=== PATIENT | male | born 1960 | race Caucasian/White ===

== ENCOUNTER → 2020-10-11 | Outpatient (CLI) | payer OTHER ==
--- NOTE | 2020-10-11 09:36 | US ---
EXAMINATION TYPE: US thyroid st tissue head/neck DATE OF EXAM: 10/11/2020 COMPARISON: NONE CLINICAL HISTORY: E03.9 hypothyroidism R13.10 Dysphagia. hypothyroidism, on meds for years, patient h as lost his voice GLAND SIZE: Right Lobe: 3.9 x 1.0 x 1.3 cm Overall Parenchyma: heterogenous Left Lobe: 4.4 x 1.2 x 1.9 cm Overall Parenchyma: heterogeneous Isthmus Thickness: unable to discern NODULES RIGHT: # of nodules measured on right: 0 LEFT: # of nodules measured on left: 0 ISTHMUS: # of nodules measured in the isthmus: 0 Bilateral neck scanned, no evidence of lymphadenopathy. IMPRESSION: No solid nodule seen within the heterogeneous thyroid. 2017 ACR TI-RADS LEVEL: TR-RADS 1 - BENIGN: No FNA *Highest TI-RADS level nodule reported
== END | disposition home or self-care (01) ==
LOC: RADUSWWP 07:49
PROVIDERS: ATTEND Family Medicine
DX: E03.9 Hypothyroidism, unspecified (principal); R13.10 Dysphagia, unspecified
CPT/HCPCS: 76536

== ENCOUNTER → 2021-07-26 | Outpatient (CLI) | payer OTHER ==
--- NOTE | 2021-07-26 17:33 | XR ---
EXAMINATION TYPE: XR chest 2V DATE OF EXAM: 07/26/2021 COMPARISON: None available HISTORY: SOB and dyspnea probably TECHNIQUE: Frontal and lateral views of the chest are obtained. FINDINGS: Grossly unremarkable lungs. No pleural effusion or pneumothorax. No cardiomegaly. No gross aggressive bone lesion. IMPRESSION: No significant pulmonary abnormality identified.
== END | disposition home or self-care (01) ==
LOC: RADXRYALE 10:01
PROVIDERS: ATTEND Physician Assistant Medical
DX: R06.02 Shortness of breath (principal)
CPT/HCPCS: 71046

== ENCOUNTER → 2021-09-20 | Outpatient (CLI) | payer OTHER ==
--- NOTE | 2021-09-20 15:54 | CT ---
EXAMINATION TYPE: CT angio chest DATE OF EXAM: 09/20/2021 3:36 PM COMPARISON: 07/27/2021 HISTORY: h/o recent PE CT DLP: 861.8 mGycm Automated exposure control for dose reduction was used. CONTRAST: CTA scan of the thorax is performed with IV Contrast, patient injected with 65 mL of Isovue 370, pulm onary embolism protocol. 3-D postprocessing was performed.. FINDINGS: The lungs are clear of consolidative, interstitial or masslike density. There is no pleural effusion, pleural thickening or pneumothorax. There is no mediastinal, hilar or axillary adenopathy. The large pulmonary embolism seen on the prior study has nearly completely resolved in the interval. There are a few tiny string-like filling defects within the distal right pulmonary artery and right l ower lobe subsegmental branch consistent with tiny residual pulmonary emboli. There are no definite l eft lung pulmonary emboli. The right heart strain seen on the prior study has resolved in the interv al.. Limited scanning through the upper and reveals a large gallstone but no other significant abnormality . The osseous structures are intact. IMPRESSION: 1. Near complete resolution of the large pulmonary embolism with minimal tiny string-like emboli in t he distal right pulmonary artery and lower lobe segmental branch. 2. Resolution of the right heart strain seen on the prior study. 3. No acute cardiopulmonary disease. 4. Large gallstone.
== END | disposition home or self-care (01) ==
LOC: RADCTMAIN 14:54
PROVIDERS: ATTEND Internal Medicine Critical Care Medicine
DX: I26.99 Other pulmonary embolism without acute cor pulmonale (principal)
CPT/HCPCS: 71275; Q9967

== ENCOUNTER → 2023-05-18 | Outpatient (CLI) | payer OTHER ==
--- NOTE | 2023-05-18 15:48 | XR ---
EXAMINATION TYPE: XR abdomen 2V DATE OF EXAM: 05/18/2023 COMPARISON: None INDICATION: Urinary calculus TECHNIQUE: Abdomen is examined in supine and upright views. FINDINGS: No free air is evident. Nonspecific bowel gas is present. No suspicious air-fluid levels or different ial air-fluid levels are evident. Psoas margins are normal. No organomegaly is present. Large calcifications in the right upper quadrant likely is a gallstone measuring 3.1 cm. IMPRESSION: 1. Large gallstone likely present right upper quadrant. 2. Nonspecific bowel gas pattern
== END | disposition home or self-care (01) ==
LOC: RADXRYALE 13:44
PROVIDERS: ATTEND Physician Assistant
DX: K80.20 Calculus of gallbladder without cholecystitis without obstruction (principal); R14.0 Abdominal distension (gaseous); M54.59 Other low back pain; Z87.442 Personal history of urinary calculi
CPT/HCPCS: 74019

== ENCOUNTER → 2023-06-02 | Outpatient (CLI) | payer OTHER ==
[2023-06-02 15:44] LABS: ALT 11 U/L (10-49); AST 17 U/L (14-35); Chol/HDL Ratio 3.57 Ratio; LDL Cholesterol,Calculated 90.2 mg/dL (0.0-131.0)
== END | disposition home or self-care (01) ==
LOC: LABWHC1 09:46
PROVIDERS: ATTEND Internal Medicine Cardiovascular Disease
DX: E78.2 Mixed hyperlipidemia (principal)
CPT/HCPCS: 36415; 80061; 84450; 84460

== ENCOUNTER 2024-01-11 07:43 | Emergency (ER) | payer OTHER ==
[2024-01-11 07:49] VITALS: RESP 18
--- NOTE | 2024-01-11 08:05 | ED ---
Male Urogenital HPI - General Chief complaint: Urogenital Stated complaint: Blood in urine Time Seen by Provider: 01/11/24 07:54 Source: patient, RN notes reviewed Mode of arrival: ambulatory Limitations: no limitations - History of Present Illness Initial comments: 63-year-old presents emergency department with chief complaint of blood in urine. Patient states started with some lower abdominal discomfort. Patient states he has a history of kidney stones but this feels different. Patient states that he is on Xarelto for history of PE. Patient states that he is having bright red blood when he urinated and along with clots. Denies fevers or chills no flank pain no chest pain or shortness of breath - Related Data Home Medications Medication Instructions Recorded Confirmed Aspirin EC [Ecotrin Low Dose] 81 mg PO DAILY 07/27/21 07/27/21 Atorvastatin [Lipitor] 20 mg PO DAILY 07/27/21 07/27/21 Levothyroxine Sodium 150 mcg PO DAILY 07/27/21 07/27/21 Losartan Potassium 100 mg PO DAILY 07/27/21 07/27/21 Sertraline [Zoloft] 100 mg PO DAILY 07/27/21 07/27/21 Previous Rx's Medication Instructions Recorded Omeprazole [PriLOSEC] 20 mg PO AC-BID #60 cap 07/29/21 Rivaroxaban [Xarelto Starter Pack] 0 mg PO DIRECTED 30 Days #1 07/29/21 packet Phenazopyridine [Pyridium] 200 mg PO TID #6 tablet 01/11/24 Sulfamethox-Tmp 800-160Mg [Bactrim 1 each PO Q12HR #20 tab 01/11/24 Ds] Allergies Allergy/AdvReac Type Severity Reaction Status Date / Time No Known Allergies Allergy Verified 01/11/24 07:49 Review of Systems ROS Statement: Those systems with pertinent positive or pertinent negative responses have been documented in the HPI. ROS Other: All systems not noted in ROS Statement are negative. Past Medical History Past Medical History: Hyperlipidemia, Hypertension, Pulmonary Embolus (PE), Thyroid Disorder Additional Past Medical History / Comment(s): Hypothyroid, PE (2011), CPAP for REYMUNDO History of Any Multi-Drug Resistant Organisms: None Reported Past Surgical History: Orthopedic Surgery Additional Past Surgical History / Comment(s): Left rotator cuff 05/21/2021 Past Anesthesia/Blood Transfusion Reactions: No Reported Reaction Past Psychological History: Anxiety, Depression Smoking Status: Never smoker Past Alcohol Use History: Occasional, Rare Past Drug Use History: None Reported - Past Family History Father Family Medical History: CVA/TIA General Exam Limitations: no limitations General appearance: alert, in no apparent distress Head exam: Present: atraumatic, normocephalic, normal inspection Eye exam: Present: normal appearance, PERRL, EOMI. Absent: scleral icterus, conjunctival injection, periorbital swelling Neck exam: Present: normal inspection, full ROM. Absent: tenderness, meningismus, lymphadenopathy Respiratory exam: Present: normal lung sounds bilaterally. Absent: respiratory distress, wheezes, rales, rhonchi, stridor Cardiovascular Exam: Present: regular rate, normal rhythm, normal heart sounds. Absent: systolic murmur, diastolic murmur, rubs, gallop, clicks GI/Abdominal exam: Present: soft, tenderness, normal bowel sounds. Absent: distended, guarding, rebound, rigid Back exam: Absent: CVA tenderness (R), CVA tenderness (L) Course Vital Signs 01/11/24 01/11/24 07:44 10:45 Temperature 98 F 98.1 F Pulse Rate 84 71 Respiratory 18 18 Rate Blood Pressure 179/79 128/73 O2 Sat by Pulse 98 98 Oximetry Medical Decision Making - Medical Decision Making Was pt. sent in by a medical professional or institution (Dr. PA, PRESS MAINTAINER, urgent care, hospital, or prison...) When possible be specific @ -No Did you speak to anyone other than the patient for history (EMS, parent, family, police, friend...)? What history was obtained from this source @ -No Did you review nursing and triage notes (agree or disagree)? Why? @ -I reviewed and agree with nursing and triage notes Were old charts reviewed (outside hosp., previous admission, EMS record, old EKG, old radiological studies, urgent care reports/EKG's, prison records)? Report findings @ -No old charts were reviewed Differential Diagnosis (chest pain, altered mental status, abdominal pain women, abdominal pain men, vaginal bleeding, weakness, fever, dyspnea, syncope, headache, dizziness, GI bleed, back pain, seizure, CVA, palpatations, mental health, musculoskeletal)? @ -Differential Abdominal Pain Men: Appendicitis, cholecystitis, diverticulosis, ischemic bowel, pancreatitis, hepatitis, UTI, gastroenteritis, AAA, incarcerated hernia, bowel obstruction, constipation, inflammatory bowel, hepatitis, peptic ulcer disease, splenic infarction, perforated viscus, testicular torsion, this is not meant to be an all-inclusive list EKG interpreted by me (3pts min.). @ -None X-rays interpreted by me (1pt min.). @ -None done CT interpreted by me (1pt min.). @ -CT abdomen pelvis showing enhancing area around bladder concerning for cystitis, no other acute process noted U/S interpreted by me (1pt. min.). @ -None done What testing was considered but not performed or refused? (CT, X-rays, U/S, labs)? Why? @ -None What meds were considered but not given or refused? Why? @ -None Did you discuss the management of the patient with other professionals (professionals i.e. , PA, PRESS MAINTAINER, lab, RT, psych nurse, social media marketing manager, long chain quiller tender, teacher, forward air controller/air officer, shoe parts caser)? Give summary @ -No Was smoking cessation discussed for >3mins.? @ -No Was critical care preformed (if so, how long)? @ -No Were there social determinants of health that impacted care today? How? (Homelessness, low income, unemployed, alcoholism, drug addiction, transportation, low edu. Level, literacy, decrease access to med. care, half-way, rehab)? @ -No Was there de-escalation of care discussed even if they declined (Discuss DNR or withdrawal of care, Hospice)? DNR status @ -No What co-morbidities impacted this encounter? (DM, HTN, Smoking, COPD, CAD, Cancer, CVA, ARF, Chemo, Hep., AIDS, mental health diagnosis, sleep apnea, morbid obesity)? @ -None Was patient admitted / discharged? Hospital course, mention meds given and route, prescriptions, significant lab abnormalities, going to OR and other pertinent info. @ -Discharged patient is found to have UTI, hemorrhagic cystitis. Patient given Rocephin discharged on oral antibiotics with close follow-up hemoglobin is stable. Undiagnosed new problem with uncertain prognosis? @ -No Drug Therapy requiring intensive monitoring for toxicity (Heparin, Nitro, Insulin, Cardizem)? @ -No Were any procedures done? @ -No Diagnosis/symptom? @ -UTI hematuria Acute, or Chronic, or Acute on Chronic? @ -Acute Uncomplicated (without systemic symptoms) or Complicated (systemic symptoms)? @ -Uncomplicated Side effects of treatment? @ -No Exacerbation, Progression, or Severe Exacerbation? @ -No Poses a threat to life or bodily function? How? (Chest pain, USA, MA, pneumonia, PE, COPD, DKA, ARF, appy, cholecystitis, CVA, Diverticulitis, Homicidal, Suicidal, threat to staff... and all critical care pts) @ -No - Lab Data Result diagrams: 01/11/24 08:00 01/11/24 08:00 Lab Results 01/11/24 01/11/24 01/11/24 Range/Units 08:00 08:00 08:00 WBC 12.9 H (3.8-10.6) k/uL RBC 4.84 (4.30-5.90) m/uL Hgb 14.8 (13.0-17.5) gm/dL Hct 44.8 (39.0-53.0) % MCV 92.6 (80.0-100.0) fL MCH 30.7 (25.0-35.0) pg MCHC 33.1 (31.0-37.0) g/dL RDW 12.8 (11.5-15.5) % Plt Count 206 (150-450) k/uL MPV 7.9 Neutrophils % 85 % Lymphocytes % 7 % Monocytes % 5 % Eosinophils % 1 % Basophils % 1 % Neutrophils # 11.0 H (1.3-7.7) k/uL Lymphocytes # 0.9 L (1.0-4.8) k/uL Monocytes # 0.6 (0-1.0) k/uL Eosinophils # 0.2 (0-0.7) k/uL Basophils # 0.1 (0-0.2) k/uL Sodium 139 (137-145) mmol/L Potassium 4.3 (3.5-5.1) mmol/L Chloride 107 (98-107) mmol/L Carbon Dioxide 25 (22-30) mmol/L Anion Gap 7 mmol/L BUN 14 (9-20) mg/dL Creatinine 1.15 (0.66-1.25) mg/dL Est GFR (CKD-EPI)AfAm 77 (>60 ml/min/1.73 sqM) Est GFR (CKD-EPI)NonAf 67 (>60 ml/min/1.73 sqM) Glucose 95 (74-99) mg/dL Calcium 9.2 (8.4-10.2) mg/dL Total Bilirubin 1.3 (0.2-1.3) mg/dL AST 21 (17-59) U/L ALT 10 (4-49) U/L Alkaline Phosphatase 59 (38-126) U/L Total Protein 6.7 (6.3-8.2) g/dL Albumin 4.0 (3.5-5.0) g/dL Lipase 753 H (23-300) U/L Urine Color Red Urine Appearance Cloudy (Clear) Urine RBC >182 H (0-5) /hpf Urine WBC >182 H (0-5) /hpf Disposition Clinical Impression: UTI (urinary tract infection) Disposition: HOME SELF-CARE Condition: Stable Instructions (If sedation given, give patient instructions): Urinary Tract In fection in Men (ED) Additional Instructions: please return to the Emergency Department if symptoms worsen or any other concerns. Prescriptions: Sulfamethox-Tmp 800-160Mg [Bactrim Ds] 1 each PO Q12HR #20 tab Phenazopyridine [Pyridium] 200 mg PO TID #6 tablet Is patient prescribed a controlled substance at d/c from ED?: No Referrals: Stiven Jeff DO [Primary Care Provider] - 1-2 days Time of Disposition: 10:08
[2024-01-11] MEDS: SODIUM CHLORIDE 0.9% 1,000 ML IV STA (08:15)
[2024-01-11 08:25] LABS: Basophils # (A) 0.1 k/uL (0-0.2); Basophils % (A) 1 %; Eosinophils # (A) 0.2 k/uL (0-0.7); Eosinophils % (A) 1 %; HCT 44.8 % (39.0-53.0); HGB 14.8 gm/dL (13.0-17.5); Lymphocytes # (A) 0.9 k/uL (1.0-4.8); Lymphocytes % (A) 7 %; MCH 30.7 pg (25.0-35.0); MCHC 33.1 g/dL (31.0-37.0); MCV 92.6 fL (80.0-100.0); Mean Platelet Volume 7.9; Monocytes # (A) 0.6 k/uL (0-1.0); Monocytes % (A) 5 %; Neutrophils % (A) 85 %; Platelet Count 206 k/uL (150-450); RBC 4.84 m/uL (4.30-5.90); RDW 12.8 % (11.5-15.5); WBC 12.9 k/uL (3.8-10.6)
[2024-01-11 08:37] LABS: RBC,Urine >182 /hpf (0-5); WBC,Urine >182 /hpf (0-5)
[2024-01-11 08:40] LABS: ALT 10 U/L (4-49); AST 21 U/L (17-59); African American GFR (CKD) 77 (>60 ml/min/1.73 sqM); Alkaline Phosphatase 59 U/L (38-126); Anion Gap 7 mmol/L; Blood Urea Nitrogen 14 mg/dL (9-20); Calcium 9.2 mg/dL (8.4-10.2); Carbon Dioxide 25 mmol/L (22-30); Chloride 107 mmol/L (98-107); Glucose 95 mg/dL (74-99); Lipase 753 U/L (23-300); Non-African American GFR(CKD) 67 (>60 ml/min/1.73 sqM); Potassium 4.3 mmol/L (3.5-5.1); Sodium 139 mmol/L (137-145); Total Bilirubin 1.3 mg/dL (0.2-1.3); Total Protein 6.7 g/dL (6.3-8.2)
[2024-01-11 08:44] LABS: Appearance,Urine Cloudy (Clear); Color,Urine Red
--- NOTE | 2024-01-11 09:23 | CT ---
EXAMINATION TYPE: CT abdomen pelvis wo con CT DLP: 1505.4 mGycm, Automated exposure control for dose reduction was used. DATE OF EXAM: 01/11/2024 8:35 AM COMPARISON: None CLINICAL INDICATION: Male, 63 years old with history of Hematuria; Gross hematuria since last night TECHNIQUE: Axial CT abdomen pelvis wo con;Sagittal and coronal reformats were created on a separate workstation. Contrast used: mL of , (none if empty) Oral contrast used: without Oral Contrast (none if empty) FINDINGS: LOWER CHEST: Unremarkable ABDOMEN LIVER: Unremarkable GALLBLADDER AND BILE DUCTS: Large gallstone the gallbladder fundus. PANCREAS: Unremarkable. SPLEEN: Unremarkable. ADRENAL GLANDS: Unremarkable. KIDNEYS AND URETERS: No evidence of hydronephrosis or renal calculus. The ureters are unremarkable. PELVIS BLADDER: Haziness around the bladder lumen which is partially distended. REPRODUCTIVE: Unremarkable. ABDOMEN & PELVIS STOMACH AND BOWEL: . Scattered diverticula are noted throughout the colon. No evidence of bowel obstr uction. PERITONEUM/RETROPERITONEUM: No evidence of pneumoperitoneum or free fluid. VASCULATURE: No evidence of aortic aneurysm. MUSCULOSKELETAL: No acute osseous abnormalities. Moderate disc degeneration changes are present throu ghout the thoracolumbar spine. Severe right and moderate severe left L5-S1 neural foraminal stenosis. LYMPH NODES: No gross evidence for lymphadenopathy. SOFT TISSUE/ABDOMINAL WALL: Fat-containing umbilical hernia. IMPRESSION: 1. Hazy inflammation around the urinary bladder correlate for cystitis with urinalysis. No obstructi ng uropathy or calculus. 2. Large gallstone the gallbladder fundus. 3. Colonic diverticulosis. [facility], , 01/11/2024 9:21 AM
[2024-01-11] MEDS: cefTRIAXone IN SWFI 1,000 MG/10 ML SYRINGE IVP STA (10:18)
[2024-01-11 10:47] VITALS: BP 128/73; PULSE 71; TEMP 98.1
== END 2024-01-11 10:47 | disposition home or self-care (01) ==
LOC: EC 07:43
DX: N39.0 Urinary tract infection, site not specified (principal)
CPT/HCPCS: 36415; 74176; 80053; 81001; 83690; 85025; 87077; 87086; 87186; 96361; 96374; 99283

== ENCOUNTER 2024-04-01 09:55 | Day surgery (SDC) | payer OTHER ==
[2024-03-29 17:58] VITALS: BMI 47.0
--- NOTE | 2024-04-01 06:29 | P.GSHP ---
History of Present Illness H&P Date: 04/01/24 CHIEF COMPLAINT: Cholecystitis HISTORY OF PRESENT ILLNESS: The patient is a 63-year-old male who presents with history of epigastric including right upper quadrant abdominal pain. He underwent diagnostic studies for his gallbladder. Separately his clinical picture was consistent with cholecystitis. Now he presents for surgical intervention. PAST MEDICAL HISTORY: Please see list PAST SURGICAL HISTORY: Please see list MEDICATIONS: Please see list ALLERGIES: Please see list SOCIAL HISTORY: Please see list FAMILY HISTORY: Please see list REVIEW OF ORGAN SYSTEMS: CONSTITUTIONAL: No reports of fevers or chills. HEENT: Denies any troubles with the vision or hearing. ENDOCRINE: No reports of hypothyroidism. No diabetes. RESPIRATORY: No recent pneumonias. CARDIOVASCULAR: Denies chest pain or palpitations GI: No blood in stools or constipation. MUSCULOSKELETAL: Has occasional joint pain including back pain. NEURO: No seizure disorders or headaches. No recent stroke. PSYCH: No depression or suicidal ideation. GENITOURINARY: No active blood in urine. No urinary hesitancy. HEMATOLOGIC: No personal or family history of DVTs or pulmonary emboli. SKIN: No skin cancer. PHYSICAL EXAM: VITAL SIGNS: Afebrile vital signs stable GENERAL: Well-developed pleasant in no acute distress. HEENT: No scleral icterus. Extraocular movements grossly intact. Moist buccal mucosa. NECK: Supple without lymphadenopathy. CHEST: Unlabored respirations. Equal bilateral excursions. CARDIOVASCULAR: Regular rate regular rhythm rhythm. Distal 2+ pulses. ABDOMEN: Soft, nondistended. Tender along the epigastrium and right upper quadrant. MUSCULOSKELETAL: No clubbing, cyanosis, or edema. NEURO: Cranial nerves II to XII within normal limits. No focal or lateralizing signs. PSYCH: Alert and oriented to person, place and time. SKIN: Well-perfused good skin turgor. ASSESSMENT: 1. Epigastric and right upper quadrant abdominal pain 2. Chronic cholecystitis 3. Symptomatic gallstones. PLAN: 1. Will need a robotic cholecystectomy possible open. Benefits and risks were described. 2. Heparin for DVT prophylaxis 5000 units. 3. Antibiotic prophylaxis. 4. CBC and CMP on day of procedure 5. Non-narcotic pre and post op pain management reviewed. 6. Indocyanine green for biliary imaging. Past Medical History Past Medical History: Hyperlipidemia, Hypertension, Pulmonary Embolus (PE), Sleep Apnea/CPAP/BIPAP, Thyroid Disorder Additional Past Medical History / Comment(s): Hypothyroid, PE (2011), CPAP for REYMUNDO, GALLBLADDER DISORDER, WAS IN ER 01/11/24 FOR UTI History of Any Multi-Drug Resistant Organisms: None Reported Past Surgical History: Orthopedic Surgery Additional Past Surgical History / Comment(s): Left rotator cuff 05/21/2021, COLONOSCOPY Past Anesthesia/Blood Transfusion Reactions: No Reported Reaction Smoking Status: Never smoker - Past Family History Father Family Medical History: CVA/TIA Medications and Allergies Home Medications Medication Instructions Recorded Confirmed Type Aspirin EC [Ecotrin Low Dose] 81 mg PO DAILY 07/27/21 03/29/24 History Atorvastatin [Lipitor] 20 mg PO DAILY 07/27/21 03/29/24 History Levothyroxine Sodium 150 mcg PO DAILY 07/27/21 03/29/24 History Losartan Potassium 100 mg PO DAILY 07/27/21 03/29/24 History Sertraline [Zoloft] 100 mg PO DAILY 07/27/21 03/29/24 History Omeprazole [PriLOSEC] 20 mg PO AC-BID #60 cap 07/29/21 03/29/24 Rx Metoprolol Succinate (ER) [Toprol 25 mg PO DAILY 03/29/24 03/29/24 History Xl] Rivaroxaban [Xarelto] 20 mg PO DAILY 03/29/24 03/29/24 History Allergies Allergy/AdvReac Type Severity Reaction Status Date / Time No Known Allergies Allergy Verified 01/11/24 07:49
[~2024-04-01 09:55] MED LIST: INDOCYANINE GREEN 25 MG VIAL IV STA; ONDANSETRON 4 MG/2 ML VIAL IVP PRN
[2024-04-01] MEDS: IV FLUID CONTINUATION 1,000 ML IV ONE (10:34)
[2024-04-01 10:50] LABS: Basophils % (A) 0 %; Eosinophils # (A) 0.2 k/uL (0-0.7); Eosinophils % (A) 4 %; HCT 44.1 % (39.0-53.0); Lymphocytes # (A) 1.6 k/uL (1.0-4.8); Lymphocytes % (A) 27 %; MCH 30.5 pg (25.0-35.0); MCHC 33.9 g/dL (31.0-37.0); MCV 89.8 fL (80.0-100.0); Mean Platelet Volume 8.5; Monocytes # (A) 0.4 k/uL (0-1.0); Monocytes % (A) 6 %; Neutrophils # (A) 3.7 k/uL (1.3-7.7); Neutrophils % (A) 61 %; Platelet Count 200 k/uL (150-450); RBC 4.91 m/uL (4.30-5.90); RDW 13.8 % (11.5-15.5)
[2024-04-01] MEDS: HEPARIN SODIUM,PORCINE 5,000 UNIT/ML 1 ML VIAL SQ PRN (11:07)
[2024-04-01] MEDS: ACETAMINOPHEN TAB 500 MG TAB PO PRN (11:07)
[2024-04-01] MEDS: DEXAMETHASONE SOD PHOSPHATE 4 MG/ML 1 ML VIAL IVP ONE (11:08)
[2024-04-01] MEDS: ONDANSETRON 4 MG/2 ML VIAL IVP ONE (11:08)
[2024-04-01] MEDS ORDERED: GLYCOPYRROLATE 0.2 MG/ML 2 ML VIAL ONE (11:30)
[2024-04-01] MEDS ORDERED: SUCCINYLCHOLINE CHLORIDE 200 MG/10 ML VIAL IV ONE (11:30)
[2024-04-01] MEDS ORDERED: ePHEDrine 50 MG/ML 1 ML VIAL ONE (11:30)
[2024-04-01] MEDS ORDERED: ROCURONIUM 10 MG/ML (5 ML VIAL) IV ONE (11:30)
[2024-04-01] MEDS ORDERED: PROPOFOL 10 MG/ML 20 ML VIAL IV ONE (11:30)
[2024-04-01] MEDS ORDERED: NEOSTIGMINE 1 MG/ML 10 ML VIAL ONE (11:30)
[2024-04-01] MEDS ORDERED: LIDOCAINE 1% INJ 10MG/ML (20 ML MDV) ONE (11:30)
[2024-04-01] MEDS ORDERED: fentaNYL (PF) 50 MCG/ML 2 ML AMP ONE (11:30)
[2024-04-01] MEDS ORDERED: MIDAZOLAM 2 MG/2 ML VIAL ONE (11:30)
[2024-04-01] MEDS ORDERED: PHENYLEPHRINE-0.9% NACL SYG 1,000 MCG/10 ML SYRINGE ONE (11:30)
[2024-04-01] MEDS: ceFAZolin 3 GM in SODIUM CHLORIDE 0.9% 100 ML IVPB PRN (11:35)
[2024-04-01 11:42] LABS: ALT 9 U/L (4-49); AST 19 U/L (17-59); African American GFR (CKD) >90 (>60 ml/min/1.73 sqM); Albumin 3.8 g/dL (3.5-5.0); Alkaline Phosphatase 62 U/L (38-126); Anion Gap 4 mmol/L; Blood Urea Nitrogen 15 mg/dL (9-20); Carbon Dioxide 24 mmol/L (22-30); Chloride 108 mmol/L (98-107); Glucose 91 mg/dL (74-99); Non-African American GFR(CKD) 84 (>60 ml/min/1.73 sqM); Potassium 4.4 mmol/L (3.5-5.1); Sodium 136 mmol/L (137-145); Total Bilirubin 1.3 mg/dL (0.2-1.3); Total Protein 6.4 g/dL (6.3-8.2)
[2024-04-01] MEDS: LIDOCAINE 1%-EPI 1:100,000 20 ML VIAL SQ ONE ×2 (11:43→12:13)
[2024-04-01] MEDS: LACTATED RINGERS 1,000 ML IV ONE (12:56)
[2024-04-01 13:15] VITALS: RESP 16; TEMP 97.5
[2024-04-01 15:25] VITALS: PULSE 69
[2024-04-01 15:45] VITALS: BP 135/66
--- NOTE | 2024-04-01 16:31 | P.OP ---
Date of Procedure: 04/01/24 Description of Procedure: SURGEON: ABENA CAMP MD PREOPERATIVE DIAGNOSES: 1. Symptomatic gallstone 2. Right upper quadrant abdominal pain 3. Obstructive sleep apnea 4. Generalized anxiety disorder 5. Depressive disorder 6. Morbid obesity due to excess calories, BMI 46.0 7. Hypertensive heart disease 8. Depressive disorder 9. Chronic anticoagulation 10. Hypothyroidism 11. Hyperlipidemia 12. History of pulmonary embolism POSTOPERATIVE DIAGNOSES: 1. Symptomatic gallstone with chronic cholecystitis 2. Right upper quadrant abdominal pain 3. Obstructive sleep apnea 4. Generalized anxiety disorder 5. Depressive disorder 6. Morbid obesity due to excess calories, BMI 46.0 7. Hypertensive heart disease 8. Depressive disorder 9. Chronic anticoagulation 10. Hypothyroidism 11. Hyperlipidemia 12. History of pulmonary embolism 13. Hepatomegaly with fatty liver disease OPERATION: Robotic-assisted da Maria Xi laparoscopic cholecystectomy, multiport with FIREFLY ESTIMATED BLOOD LOSS: 5 mL. SPECIMENS REMOVED: Gallbladder. COMPLICATIONS: None. OPERATIVE FINDINGS: 1. Moderate to severe hepatomegaly with fatty liver disease adding complexity to the case 2. Gallbladder encased in moderate fatty tissue requiring extensive dissection INDICATIONS: The patient is a 63-year-old male who presents with symptomatic gallstones. Robotic assisted laparoscopic approach was described. Benefits and risks of the procedure including but not limited to bleeding, infection, injury to the biliary tree was described. Informed consent was obtained. DESCRIPTION OF PROCEDURE: Patient was brought to the operating room, placed in supine position. After general induction, the abdomen had been prepped and draped in standard sterile fashion. The robotic da Maria XI system was primed. After a timeout protocol was performed, the patient had been prepped and draped in standard sterile fashion. The patient was injected with indocyanine green. A 5 mm 0 degrees laparoscopic trocar entry was performed along the left upper quadrant. The abdomen insufflated to 15 mmHg pressure which was tolerated well. Diagnostic laparoscopy demonstrated no injury to bowel viscera or mesentery. The liver surface was remarkable for fatty liver disease. Moderate hepatomegaly was identified. Next, two 8 mm robotic ports were placed along the right upper abdomen. The camera 8-mm port was maintained along the epigastrium. Another 8 mm port was placed along the left upper abdominal wall after exchanging the 5 mm port. Please note that the ports were placed at least 10 to 15 cm away from the target anatomy of the gallbladder. The robot was docked along the left lateral abdomen. The patient was repositioned in reverse Trendelenburg position. Using a grasper for arm 3, a grasper for arm 4, including hook cautery for arm 1, the robotic system was docked and primed as described. Instruments were interchanged by the veterinary assistant including hook cautery, Bovie cautery and clip appliers. I had sat at the console. The gallbladder was encased in intrahepatic from a large liver with fatty liver disease adding complexity to the case. Dome down technique was performed dissecting the gallbladder from the hepatic fossa from the fundus towards the infundibulum. Next attention was brought to the infundibulum and cystic structures. The infundibulum and cystic duct were dissected free from surrounding tissues. The cystic duct was isolated. FIREFLY was used to identify the cystic artery and cystic structures. A critical view of safety was obtained. Large PLASTIC clips were used throughout the entire case. Using a clip salon customer experience specialist, 3 clips were placed at the junction of the infundibulum and cystic duct. The cystic duct was divided between clips. Next, the cystic artery was similarly clipped and cauterized. Electro-Bovie cautery was used to remove the gallbladder from the hepatic fossa. Hemostasis was checked and found to be adequate. The robot was undocked. I re-scrubbed into the case. Using a 10 mm Endo Catch bag via the left upper quadrant incision, the specimen was removed from the abdominal cavity. All pneumoperitoneum instruments were evacuated from the abdominal cavity. The incisions were reapproximated using 4-0 Monocryl in an interrupted subcuticular fashion. Fascial defects were less than 8 mm in size. Please note along the trocar sites, local anesthetic was placed as a field block prior to insertion of all instruments. Liquid glue was applied to the skin. At the end of the procedure needle, sponge, and instrument count had been verified correct by the surgical coder. The patient was transferred to postanesthesia care unit in stable condition. Intraoperative films were shared with the patient's family. Plan - Discharge Summary Discharge Rx Participant: No New Discharge Prescriptions: New Cyclobenzaprine [Flexeril] 10 mg PO TID #30 tab Acetaminophen Tab [Tylenol Tab] 1,000 mg PO Q6HR PRN #30 tablet PRN Reason: Pain Simethicone [Gas-X] 125 mg PO AC-TID PRN #20 capsule PRN Reason: Pain Continue Atorvastatin [Lipitor] 20 mg PO DAILY Omeprazole [PriLOSEC] 20 mg PO AC-BID #60 cap Metoprolol Succinate (ER) [Toprol XL] 25 mg PO DAILY Sertraline [Zoloft] 100 mg PO DAILY Losartan Potassium 100 mg PO DAILY Levothyroxine Sodium 150 mcg PO DAILY Aspirin EC [Ecotrin Low Dose] 81 mg PO DAILY Rivaroxaban [Xarelto] 20 mg PO DAILY Discharge Medication List Aspirin EC [Ecotrin Low Dose] 81 mg PO DAILY 07/27/21 [History] Atorvastatin [Lipitor] 20 mg PO DAILY 07/27/21 [History] Levothyroxine Sodium 150 mcg PO DAILY 07/27/21 [History] Losartan Potassium 100 mg PO DAILY 07/27/21 [History] Sertraline [Zoloft] 100 mg PO DAILY 07/27/21 [History] Omeprazole [PriLOSEC] 20 mg PO AC-BID #60 cap 07/29/21 [Rx] Metoprolol Succinate (ER) [Toprol XL] 25 mg PO DAILY 03/29/24 [History] Rivaroxaban [Xarelto] 20 mg PO DAILY 03/29/24 [History] Acetaminophen Tab [Tylenol Tab] 1,000 mg PO Q6HR PRN #30 tablet 04/01/24 [Rx] Cyclobenzaprine [Flexeril] 10 mg PO TID #30 tab 04/01/24 [Rx] Simethicone [Gas-X] 125 mg PO AC-TID PRN #20 capsule 04/01/24 [Rx] Follow up Appointment(s)/Referral(s): Abena Camp MD [STAFF PHYSICIAN] - 04/05/24 6:20 pm Patient Instructions/Handouts: *Surgery [facility] - (Anesthesia) Discharge Instructions Outpatient Surgery, Laparoscopic Cholecystectomy (DC) Activity/Diet/Wound Care/Special Instructions: TELEHEALTH - WILL CALL YOU BETWEEN 9 am to 8 pm START BLOOD THINNER Thursday NO LONG DRIVES OR AIRPLANE RIDES OVER 60 MINUTES FOR THE NEXT 2 WEEKS, 04/15/24, DUE TO HIGH RISK OF PULMONARY EMBOLISM/DVTs May drive in 72 hrs, 04/04/24 Recommend low-fat diet for the next 2 days. No lifting over 10 pounds in 2 weeks 04/15/24, May shower. No bath tub soaks for two weeks 04/15/24, Diet as tolerated. Use Tylenol, simethicone scheduled for the next 24-48 hours for best pain relief. Use ice along incisions for today to prevent swelling. Discharge Disposition: HOME SELF-CARE
== END 2024-04-01 16:35 | disposition home or self-care (01) ==
LOC: OR 09:55
PROVIDERS: ATTEND Surgery Plastic and Reconstructive Surgery
DX: K80.12 Calculus of gallbladder with acute and chronic cholecystitis without obstruction (principal); G47.33 Obstructive sleep apnea (adult) (pediatric); E03.9 Hypothyroidism, unspecified; E78.5 Hyperlipidemia, unspecified; R16.0 Hepatomegaly, not elsewhere classified; I11.9 Hypertensive heart disease without heart failure; F41.1 Generalized anxiety disorder; K76.0 Fatty (change of) liver, not elsewhere classified; F32.A Depression, unspecified; E66.01 Morbid (severe) obesity due to excess calories; Z68.42 Body mass index [BMI] 45.0-49.9, adult; Z99.89 Dependence on other enabling machines and devices; Z86.711 Personal history of pulmonary embolism; Z79.899 Other long term (current) drug therapy; Z79.01 Long term (current) use of anticoagulants; Z79.890 Hormone replacement therapy; Z79.82 Long term (current) use of aspirin; Z82.3 Family history of stroke
CPT/HCPCS: 47563; S2900; 80053; 85025; 88304